=== PATIENT | female | born 2005 | race Caucasian/White ===

== ENCOUNTER 2025-01-28 18:24 | Inpatient (IN) | payer OTHER ==
[~2025-01-28] VITALS: Ht 167.6 cm; Wt 57.7 kg
[2025-01-28 19:00] LABS: BASO # 0.1 10^3/uL (0.0-0.2); BASO % 0.7 % (0.0-1.0); EOS # 0.1 10^3/uL (0.0-0.5); EOS % 1.2 % (0.0-3.0); LYMPH # 2.8 10^3/uL (1.5-5.0); LYMPH % 30.8 % (24.0-44.0); MONO # 0.5 10^3/uL (0.0-0.8); MONO % 5.7 % (2.0-8.0); NEUTROPHILS # 5.5 10^3/uL (1.5-8.5); NEUTROPHILS % 61.5 % (36.0-66.0); PLATELET COUNT, AUTOMATED 190 10^3/uL (150-450)
[2025-01-28 19:26] LABS: ETHYL ALCOHOL (ETHANOL) < 0.003 % (0.000-0.010)
[2025-01-28 19:27] LABS: CPK CREATINE PHOSPHOKINASE 78 U/L (34-145)
[2025-01-28 19:28] LABS: ALT/SGPT 14 U/L (7.0-40); AST/SGOT 19 U/L (<34); CALCIUM LEVEL 8.6 MG/DL (8.5-10.1); CARBON DIOXIDE LEVEL 20 MMOL/L (20-31); CHLORIDE LEVEL 109 MMOL/L (98-107); CREATININE FOR GFR 0.93 MG/DL (0.55-1.30); GLOMERULAR FILTRATION RATE 89.7 (>60); POTASSIUM SERUM 5.5 MMOL/L (3.5-5.1); SODIUM LEVEL 146 MMOL/L (136-145)
[2025-01-28 20:03] LABS: SALICYLATE LEVEL < 3.0 MG/DL (<30)
[2025-01-28 20:16] LABS: AMPHETAMINES LEVEL URINE NEGATIVE (NEGATIVE); BARBITURATES URINE NEGATIVE (NEGATIVE); BENZODIAZEPINES URINE NEGATIVE (NEGATIVE); CANNABINOIDS URINE NEGATIVE (NEGATIVE); COCAINE METABOLITE URINE NEGATIVE (NEGATIVE); METHADONE URINE NEGATIVE (NEGATIVE); OPIATES URINE NEGATIVE (NEGATIVE); PHENCYCLIDINE URINE NEGATIVE (NEGATIVE)
[2025-01-28 20:33] LABS: HCG, SERUM QUALITATIVE NEGATIVE (NEGATIVE)
[2025-01-28] MEDS ORDERED: [UNRECOGNIZED DRUG - CODE] PO (21:19)
[2025-01-28] MEDS ORDERED: PANT40TA29 PO (21:20)
[2025-01-28] MEDS: ONDANSETRON 4MG 2ML VIAL IV ONE (21:50)
[2025-01-28] MEDS: NS (Normal Saline) 0.9% 1,000 ML IV ONE (22:28)
[2025-01-29 01:05] LABS: SALICYLATE LEVEL < 3.0 MG/DL (<30)
[2025-01-29 01:30] LABS: ALT/SGPT 15 U/L (7.0-40); AST/SGOT 22 U/L (<34); CALCIUM LEVEL 7.9 MG/DL (8.5-10.1); CARBON DIOXIDE LEVEL 19 MMOL/L (20-31); CHLORIDE LEVEL 109 MMOL/L (98-107); CREATININE FOR GFR 0.80 MG/DL (0.55-1.30); GLOMERULAR FILTRATION RATE > 90.0 (>60); POTASSIUM SERUM 3.9 MMOL/L (3.5-5.1); SODIUM LEVEL 144 MMOL/L (136-145)
[2025-01-29] MEDS ORDERED: PREV1CAP PO (04:06)
[2025-01-29] MEDS ORDERED: AMOX500C PO (04:06)
[2025-01-29] MEDS ORDERED: CLAR500T97 PO (04:06)
[2025-01-29] MEDS ORDERED: HOME MED LIST COMPLETE! XX SCH (04:10)
[2025-01-29] MEDS ORDERED: traZODone 50 MG TAB PO PRN (04:15)
[2025-01-29] MEDS ORDERED: ACETAMINOPHEN 325 MG TAB PO PRN (04:15)
[2025-01-29] MEDS ORDERED: MOM 30 ML SUSPENSION UDC PO PRN (04:15)
[2025-01-29] MEDS ORDERED: MAALOX 30 ML SUSP *UDC PO PRN (04:15)
[2025-01-29 06:14] VITALS: BP 109/66; TEMP 97.6; O2SAT 100
[2025-01-29] MEDS: IBUPROFEN 400 MG TAB PO PRN (12:44)
[2025-01-29 14:45] VITALS: BP 115/85; TEMP 98.9; O2SAT 100
[2025-01-29] MEDS: OMEPRAZOLE 20MG CAP PO SCH (21:16)
[2025-01-29] MEDS: AMOXICILLIN 500 MG CAP PO SCH (21:16)
[2025-01-30 06:32] VITALS: BP 117/73; TEMP 98; O2SAT 99
[2025-01-30 18:33] VITALS: BP 114/61; TEMP 99.6
[2025-01-30] MEDS: LANSOPRAZOLE PO SCH (20:08)
[2025-01-30] MEDS: CLARITHROMYCIN PO SCH (20:08)
[2025-01-30] MEDS: AMOXICILLIN PO SCH (20:08)
[2025-01-31 06:19] VITALS: BP 116/80; TEMP 97.9; O2SAT 98
== END 2025-01-31 08:03 | disposition home or self-care (01) | DRG 882 ==
LOC: EDBD 18:24 → M ED 18:24 → M ED INP 01-29 04:14 → M PSY 01-29 05:39
PROVIDERS: ADMIT Student in an Organized Health Care Education/Training Program; ATTEND Psychiatry & Neurology Psychiatry
DX: F43.22 Adjustment disorder with anxiety (principal); E87.1 Hypo-osmolality and hyponatremia; Z91.52 Personal history of nonsuicidal self-harm; E87.5 Hyperkalemia; Z79.899 Other long term (current) drug therapy; Z63.5 Disruption of family by separation and divorce; F41.9 Anxiety disorder, unspecified